=== PATIENT | male | born 1930 | race Caucasian/White ===

== ENCOUNTER 2018-11-22 17:43 | Inpatient (IN) | payer MEDICARE ==
[~2018-11-22] VITALS: Ht 172.7 cm; Wt 83.9 kg
[2018-12-01 06:56] VITALS: BP 144/76
== END 2018-12-01 18:23 | disposition home health service (06) | DRG 242 ==
LOC: ED 19:29 → EDIP 20:21 → 5SO 21:34 → 3NE 11-30 17:11 → UNDODISIN 12-01 16:24
PROVIDERS: ADMIT Internal Medicine; ATTEND Internal Medicine
PROC: 0JH606Z Insertion of Pacemaker, Dual Chamber into Chest Subcutaneous Tissue and Fascia, Open Approach (ICD-10-PCS; principal; 2018-11-24)
PROC: 02H63JZ Insertion of Pacemaker Lead into Right Atrium, Percutaneous Approach (ICD-10-PCS; 2018-11-24)
PROC: 02HK3JZ Insertion of Pacemaker Lead into Right Ventricle, Percutaneous Approach (ICD-10-PCS; 2018-11-24)
PROC: B5161ZZ Fluoroscopy of Right Subclavian Vein using Low Osmolar Contrast (ICD-10-PCS; 2018-11-24)
PROC: 0W993ZZ Drainage of Right Pleural Cavity, Percutaneous Approach (ICD-10-PCS; 2018-11-26)
DX: I44.1 Atrioventricular block, second degree (principal); I50.33 Acute on chronic diastolic (congestive) heart failure; J96.21 Acute and chronic respiratory failure with hypoxia; S22.22XA Fracture of body of sternum, initial encounter for closed fracture; N17.9 Acute kidney failure, unspecified; I13.0 Hypertensive heart and chronic kidney disease with heart failure and stage 1 through stage 4 chronic kidney disease, or unspecified chronic kidney disease; J98.11 Atelectasis; J91.8 Pleural effusion in other conditions classified elsewhere; I45.2 Bifascicular block; I77.819 Aortic ectasia, unspecified site; N18.3 Chronic kidney disease, stage 3 (moderate); G47.30 Sleep apnea, unspecified; E78.5 Hyperlipidemia, unspecified; E11.22 Type 2 diabetes mellitus with diabetic chronic kidney disease; Z60.2 Problems related to living alone; N40.0 Benign prostatic hyperplasia without lower urinary tract symptoms; I25.10 Atherosclerotic heart disease of native coronary artery without angina pectoris; K44.9 Diaphragmatic hernia without obstruction or gangrene; W07.XXXA Fall from chair, initial encounter; S29.011A Strain of muscle and tendon of front wall of thorax, initial encounter; E87.6 Hypokalemia; Z96.643 Presence of artificial hip joint, bilateral; H91.90 Unspecified hearing loss, unspecified ear; Z79.899 Other long term (current) drug therapy; Z88.1 Allergy status to other antibiotic agents; Z90.49 Acquired absence of other specified parts of digestive tract; Z82.49 Family history of ischemic heart disease and other diseases of the circulatory system; Z79.84 Long term (current) use of oral hypoglycemic drugs; Y93.89 Activity, other specified; Y92.89 Other specified places as the place of occurrence of the external cause; Y99.8 Other external cause status; I49.3 Ventricular premature depolarization; Z87.891 Personal history of nicotine dependence
CPT/HCPCS: 32555; 33208; 36415; 71045; 71250; 71275; 80048; 80053; 80061; 81001; 82040; 82962; 83735; 83880; 84436; 84443; 84484; 85025; 85610; 85730; 93005; 93306; 99156; 99157; 99285; C1779; C1785; C1892; G0378; J0690; J1940; J2250; J3010; Q9967; J1815